=== PATIENT | female | born 1950 | race Caucasian/White ===

== ENCOUNTER 2023-07-21 07:21 | Day surgery (SDC) | payer MEDICARE, SELFPAY ==
[2023-07-16 14:00] VITALS: BMI 21.6
--- NOTE | 2023-07-20 10:40 | HO.ANESPROP2 ---
Documented by User: Gissell Mcneal NP 07/20/23 10:41 HPI - Anesthesia Eval Consult details Narrative: 72yo F for Colonoscopy PMFSH Past Medical History Medical History Presence of pessary Hyperlipidemia HTN (hypertension) Surgical History Surgical History H/O colonoscopy Social History Social History Patient Tobacco Use Status: Never used Tobacco Use of substances other than those prescribed or required for medical reasons: No Are you DNR?: No Advance Directives: No Advance Directives Information Provided: Yes Meds Allergies Allergy/AdvReac Type Severity Reaction Status Date / Time amoxicillin [AMOXICILLIN] Allergy Severe HIVES Verified 07/21/23 07:31 lisinopril Allergy Severe Swelling Verified 07/21/23 07:31 Home Medications Medication Instructions Recorded Confirmed Last Taken Type calcium carbonate 500 mg-vitamin 1 tab PO DAILY 07/16/23 07/21/23 Unknown History D3 10 mcg (400 unit) tablet (Calcium 500 With D) cholecalciferol (vitamin D3) 25 25 mcg PO DAILY 07/16/23 07/21/23 Unknown History mcg (1,000 unit) tablet (Vitamin D3) losartan 50 mg tablet 50 mg PO DAILY 07/16/23 07/21/23 07/20/23 History multivitamin 1 tab PO DAILY 07/16/23 07/21/23 Unknown History rosuvastatin 5 mg tablet 5 mg PO DAILY 07/16/23 07/21/23 Unknown History Exam Height,Weight and Vital Signs: Height 5 ft 4 in Weight 57.153 kg Assessment and Plan Assessment Anesthesia Assessment: Chart Reviewed Documented by User: Lisy Braun MD 07/21/23 08:07 PMFSH Active Problems Active Problems: HTN Hyperlipidemia Pessaery in place.Denies SHIRLEY Past Medical History Medical History Presence of pessary Hyperlipidemia HTN (hypertension) Family History Family history of problems with anesthesia: No Surgical History Surgical History H/O colonoscopy History of Problems with Anesthesia: No Social History Social History Patient Tobacco Use Status: Never used Tobacco Use of substances other than those prescribed or required for medical reasons: No Are you DNR?: No Advance Directives: No Advance Directives Information Provided: Yes Meds Allergies Allergy/AdvReac Type Severity Reaction Status Date / Time amoxicillin [AMOXICILLIN] Allergy Severe HIVES Verified 07/21/23 07:31 lisinopril Allergy Severe Swelling Verified 07/21/23 07:31 Home Medications Medication Instructions Recorded Confirmed Last Taken Type calcium carbonate 500 mg-vitamin 1 tab PO DAILY 07/16/23 07/21/23 Unknown History D3 10 mcg (400 unit) tablet (Calcium 500 With D) cholecalciferol (vitamin D3) 25 25 mcg PO DAILY 07/16/23 07/21/23 Unknown History mcg (1,000 unit) tablet (Vitamin D3) losartan 50 mg tablet 50 mg PO DAILY 07/16/23 07/21/23 07/20/23 History multivitamin 1 tab PO DAILY 07/16/23 07/21/23 Unknown History rosuvastatin 5 mg tablet 5 mg PO DAILY 07/16/23 07/21/23 Unknown History Exam Height,Weight and Vital Signs: Height 5 ft 4 in Weight 57.153 kg Vital Signs Temp Pulse Resp BP Pulse Ox O2 Del Method 07/21/23 07:45 98.2 F 91 16 162/80 H 99 Room Air Airway Mallampati Class: III (Small mouth) TM Dist: >3cm Neck ROM: Full Loose/Missing/Broken Teeth: No (Caps intact. Denies broken, loose, missing teeth) Heart: RRR Lungs: CTAB Assessment and Plan Assessment Anesthesia Assessment: Anesthesia Plan Discussed Final Anesthetic Review Family History of Problems with Anesthesia: No History of Problems with Anesthesia: No NPO: Yes ASA Class: II Final Preanesthetic Review: No Changes in Pt Med Stat, Meds/Allgs Chart Reviewed, Consent Obtained/Reviewed and Anes Risks/Benef Reviewed Patient Risk: Low Procedure Risk: Low Assessment/Block/Sedation in SS: Assess/Block/Sedation-SS Anesthetic Plan Anesthetic Plan: MAC: Disposition: Standard PACU
[2023-07-21 07:32] VITALS: BMI 21.4
[2023-07-21 07:45] VITALS: BP 162/80; PULSE 91; RESP 16; TEMP 36.8; O2SAT 99
[2023-07-21] MEDS: Lactated Ringers 1,000 ML 100 ML IVCONT (08:14)
[2023-07-21 09:43] VITALS: BP 89/39; PULSE 53; RESP 16; TEMP 36.1; O2SAT 100
[2023-07-21 09:58] VITALS: BP 118/61; PULSE 71; RESP 16; TEMP 36.7; O2SAT 100
--- NOTE | 2023-07-21 09:58 | PM.OP ---
Brief Operative Note Date of Service: 07/21/23 Pre-op diagnosis: Screening Post-op diagnosis: other (Diverticulosis) Procedure: Colonoscopy to the cecum and TI Surgeon: Smooth Jaimes MD Anesthesia: MAC Was an Soda Fountain Operator used for this Procedure?: No Estimated blood loss (mL): 0 Pathology: none sent Condition: stable Disposition: PACU
--- NOTE | 2023-07-21 10:15 | OP_ITS ---
DATE OF SERVICE: 07/21/2023 SURGEON: Smooth Jaimes MD INDICATIONS: The patient presents for evaluation of colorectal cancer screening. Full consent has been obtained from her for this, including risks of bleeding and perforation. PREOPERATIVE DIAGNOSIS: Colorectal cancer screening. POSTOPERATIVE DIAGNOSIS: PROCEDURE PERFORMED: Colonoscopy to the cecum and terminal ileum. ESTIMATED BLOOD LOSS: COMPLICATIONS: ANESTHESIA: Monitored anesthesia care. ASSISTANTS: SPECIMENS: POSTOPERATIVE DIAGNOSES: Colorectal cancer screening, diverticulosis, internal hemorrhoids. DESCRIPTION OF PROCEDURE: The patient was placed in the left lateral decubitus position. The digital rectal exam revealed some small external hemorrhoids. The Olympus video pediatric colonoscope was entered into the rectum and advanced easily to the cecum. Once in the cecum, I did identify normal-appearing cecal pouch with appendiceal orifice and a normal-appearing ileocecal valve. The terminal ileum was cannulated and appeared normal. The scope was withdrawn back in the colon. The entire cecum and ileocecal valve appeared normal. The scope was slowly withdrawn assessing all mucosal surfaces carefully. Preparation was excellent. I did not visualize any sign of polyps, colitis, nor angiodysplasia. There was a moderate amount of sigmoid diverticulosis. In the rectum, scope was retroflexed visualizing internal hemorrhoids, but no other pathology. The rectal mucosa appeared normal. The scope was straightened and withdrawn from the patient. She tolerated the procedure well and was returned to the recovery area in stable condition. IMPRESSION: 1. Diverticulosis. 2. Internal hemorrhoids. 3. Small external hemorrhoids. PLAN: Given today's negative exam, a negative family history, and her age, I do not think she would need any further screening colonoscopies. As such, she will see me on a p.r.n. basis. MD STEPHEN Johnson/RADHA / [phone]
== END 2023-07-21 10:38 | disposition home or self-care (01) ==
PROVIDERS: PCP Nurse Practitioner Family; Visit Provider Internal Medicine
PROC: 0DJD8ZZ Inspection of Lower Intestinal Tract, Via Natural or Artificial Opening Endoscopic (ICD-10-PCS; CPT 45378; principal; 2023-07-21 08:30)
DX: Z12.11 Encounter for screening for malignant neoplasm of colon (principal); K57.30 Diverticulosis of large intestine without perforation or abscess without bleeding; K64.8 Other hemorrhoids; K64.4 Residual hemorrhoidal skin tags; I10 Essential (primary) hypertension; E78.5 Hyperlipidemia, unspecified; Z96.0 Presence of urogenital implants; Z79.899 Other long term (current) drug therapy; Z88.1 Allergy status to other antibiotic agents; Z88.8 Allergy status to other drugs, medicaments and biological substances
CPT/HCPCS: G0121; J2704

== ENCOUNTER 2023-12-08 07:19 | Outpatient (REF) | payer MEDICARE, SELFPAY ==
[2023-12-08 10:55] LABS: Alanine Aminotransferase 16 U/L (0-31); Albumin Level 4.3 g/dL (3.5-5.0); Alkaline Phosphatase 81 U/L (39-117); Anion Gap 14 (12-20); Aspartate Amino Transferase 19 U/L (5-31); Bilirubin Total 0.4 mg/dL (0.0-1.0); Blood Urea Nitrogen 18 mg/dL (9-16); Calcium 9.5 mg/dL (8.4-10.2); Carbon Dioxide 27 mmol/L (22-29); Chloride 105 mmol/L (96-108); Cholesterol 192 mg/dL (<200); Estimated Glomerular Filt Rate > 60; Glucose Random 79 mg/dL (60-115); HDL Cholesterol 48 mg/dL (>40); LDL Cholesterol Calculated 114 mg/dL (<100); Sodium 142 mmol/L (135-145); Total Protein 6.8 g/dL (6.5-8.0); Triglycerides 151 mg/dL (<150)
== END 2023-12-08 07:20 | disposition home or self-care (01) ==
LOC: HO.HMGCLDS 07:19
PROVIDERS: PCP Nurse Practitioner Family; Visit Provider Nurse Practitioner Family
DX: E78.00 Pure hypercholesterolemia, unspecified (principal)
CPT/HCPCS: 36415; 80053; 80061

== ENCOUNTER 2024-11-29 13:55 | Outpatient (AMB) | payer MEDICARE, SELFPAY ==
--- OUTSIDE RECORDS SUMMARY | 2024-11-29 13:57 | XMS_ITS | Patient Health Record ---
Author Organization [facility] Gabrielle Caseley Address [address] [place] [address] Care Team Providers Care Dispatcher Service Chief Name Role Phone Dagoberto CASTRO, Isis Primary Care Provider Unavail able Mignon Oconnor Unavailable [phone] Allergies Allergen (clinical drug ingredient) Drug/Non Drug Allergy documented on EMR Reaction Allergy Type Onset Date Status amoxicillin Amoxicillin hives Drug Allergy Act byron amlodipine Amlodipine rapid heart beat Drug Allergy Active lisinopril Lisinopril swelling Drug Allergy Activ e Penicillin hives Drug Allergy Active Reason For Referral No Information Medications Medication SIG (Take, Route, Frequency, Duration) Notes Start Date End Date Status Lisinopril 20 MG 1 tablet Orally Once a day for 30 day(s) Not-Taking Calcium 150 MG as directed Orally Active Simvastatin 20 MG 1 tablet in the even ing Orally Once a day for 30 day(s) Not-Taking Multi Vitamin/Minerals as directed Orally Active Rosuvastatin Calcium 5 MG 1 tablet Orall y Once a day Active Losartan Potassium 50 MG 1 tablet Orally Once a day Active Social History Tobacco use other than smoking: Question Answer Notes Are you an other tobacco user? No Vital Signs Blood pressure diastolic 80 mm Hg 11/13/2024 Height 5 ft 4 in in 11/13/2024 Blood pressure systolic 128 mm Hg 11/13/2024 Weight 120 lbs 11/13/2024 BMI 20.6 kg/m2 11/13/2024 Procedures Procedure Date Ordered Date Performed Result Body Sit e 76942-Rvya Destruction, 1-14 11/13/2024 N/A Encounters Encounter Location Date Provider [facility] [place] [address] [place] [address] 11/13/2024 Mignon Oconnor Pain in right toe(s) M79.674 ; Onychomycosis B35.1 ; Pain in left toe(s) M79.675 ; Plantar wart B07.0 and Left foot pain M79.672 Assessments Encounter Date Diagnosis (ICD Code) Assessment Notes Treatment Notes Treatment Clinical Notes Section Notes 11/13/2024 Pain in right toe(s) (ICD-10 - M79.674) 11/13/2024 Onychomycosis (ICD-10 - B35.1) 11/13/2024 Pain in left toe(s) (ICD-10 - M79.675) 11/13/2024 Plantar wart (ICD-10 - B07.0) 11/13/2024 Left foot pain (ICD-10 - M79.672) Plan Of Treatment Pending Test Test Name Order Date X ray : Foot, right 3V 08/01/2012 19899-Hnna Destruction, 1-14 11/13/2024 60741- Debride <25 sq cm 08/01/2012 68338- Debride <25 sq cm 09/14/2012 Next Appt Details Provider Name:Mignon marin, 02/12/2025 02:45:00 PM, [address] [place], [address], Insurance Providers Payer Name Payer Address Payer Phone Subscriber Number Group Number Insured Name Patient Relationship to Insured Coverage Start Date Coverage End Date Medicare National Govt [facility] [address] [facility] [place] [address] [id number] Lynne Bravo Self - patient is the insured 5 [employer] Blue [employer] [address] [place] [address] [id number] Lynne Bravo Self - patient is the insured Medical (General) History Medical History History ICD Code hyperlipidemia chicken pox measles mumps hypertension CAD (Cholesterol) High Blood Pressure Surgical History Surgery Date(Month/Year) hysterectomy 09/26/24 Colpocleisis cystoscopy
--- OUTSIDE RECORDS SUMMARY | 2024-11-29 13:57 | XMS_ITS ---
Author Organization [facility] Address [address] [place] [id number] Care Team Providers Care Clinical Documentation Specialist Name Role Phone Isis Arenas N.P. Primary Care Provider Smooth Maldonado [phone] REASON FOR VISIT screening Problems Problem Type SNOMED Code ICD Code Onset Dates Problem Status W/U Status Risk Notes Problem Diverticular disease of colon (032405312) Diverticulosis of large intestine without perforation or abscess without bleeding (K57.30) Active confirmed Encounters Encounter Location Date Provider Diagnosis [facility] [address], [place] [id number] 07/21/2023 Smooth Jaimes Encounter for scre ening colonoscopy Z12.11 ; Diverticulosis of large intestine without perforation or abscess without bleeding K57.30 and Other hemorrhoids K64.8 Assessments Encounter Date Diagnosis (ICD Code) Assessment Notes Treatment Notes Treatment Clinical Notes Section Notes 07/21/2023 Encounter for screening colonoscopy (ICD-10 - Z12.11) 07/21/2023 Diverticulosis of large intestine without perforation or abscess without bleeding (ICD-10 - K57.30) 07/21/2023 Other hemorrhoids (ICD-10 - K64.8) Plan Of Treatment No Information Progress Notes * BOB MARIE MDOB:[birth year] (73 yo F)Acc No.[id number]:07/21/2023 COLON WITH MAC Patient:?BOB MARIE Provider:?Smooth Jaimes MD :1950???Age:72 Y???Sex:Female D ate:07/21/2023 Address:[address] [place] [address] , [place], [id number] Pcp:Isis Arenas N.P. Subjective: * Chief Complaints: * ???1. Screening. * Medical History:? Objective: * Vitals:? Assessment: * Assessment: 1.?Encounter for screening c olonoscopy - Z12.11 (Primary)???2.?Diverticulosis of large intestine without perforation or abscess without bleeding - K57.30???3.?Other hemorrhoids - K64.8??? Plan: * Treatment: * Procedure Codes:?G0121 COLOR EC CNCR SCR;COLNSCPY NO HI RSK, 0529F INTRVL 3+YRS PTS CLNSCP DOCD, 0528F RCMND FLW-UP 10 YRS DOCD, Modifiers: 1P * * The named appointment provid er may or may not be the originator of this progress note, and it is not deemed complete until electronically signed by the appointment provider. Sign off status: Pending * Provider:?Smooth Jaimes MD Date:? 024 Generated for Ben meeks/Kody/eTransmitting on:?11/29/2024 01:57 PM EDT
--- OUTSIDE RECORDS SUMMARY | 2024-11-29 13:57 | XMS_ITS | Patient Health Record ---
Author Organization [facility] Address [address] [place] [address] Care Team Providers Care Panel Builder Name Role Phone Isis Arenas N.P. Primary Care Provider Smooth Maldonado [phone] Allergies Allergen (clinical drug ingredient) Drug/Non Drug Allergy documented on EMR Reaction Allergy Type Onset Date Status lisinopril Lisinopril Unknown Drug Allergy Activ e amoxicillin Amoxicillin Unknown Drug Allergy Act byron amlodipine Amlodipine Unknown Drug Allergy Activ e Reason For Referral No Information Medications Medication SIG (Take, Route, Frequency, Duration) Notes Start Date End Date Status Vitamin D (Cholecalciferol) 25 MCG (1000 UT) 1 capsule Orally Once a day for 30 day(s) Active Calcium + D 500-1000-40 MG-UNT-MCG as directed Orally Active Multi Vitamin - 1 tablet Orally Once a day for 30 day(s) Active Rosuvastatin Calcium 5 MG 1 capsule Oral ly Once a day for 30 day(s) Active Losartan Potassium 50 MG 1 tablet Orally Once a day for 30 day(s) Active Immunizations Vaccine Route Administration Date Status Comme nts Influenza Unknown 05/12/2023 Refused Social History Tobacco Use: Social History Observation Description Date Details (start date - stop date) Never Smoker NA - NA Tobacco Use/Smoking Question Answer Notes Patient is a nonsmoker Alcohol Screen Question Answer Notes Did you have a drink containing alcohol in the p ast year? No Points 0 Interpretation Negative Section Notes: Nonsmoker; no sig alcohol Problems Problem Type SNOMED Code ICD Code Onset Dates Problem Status W/U Status Risk Notes Problem [id number] Colon cancer screening (Z12.11) Active confirmed Problem Diverticular disease of colon (843867766) Diverticulosis of large intestine without perforation or abscess without bleeding (K57.30) Active confirmed Problem [id number] Preprocedural examination (Z01.818) Active confirmed Encounters Encounter Location Date Provider Diagnosis [facility] [address] [place] [address] 04/21/2024 Smooth Jaimes Plan Of Treatment Future Test Test Name Order Date COLONOSCOPY 05/12/2023 Insurance Providers Payer Name Payer Address Payer Phone Subscriber Number Group Number Insured Name Patient Relationship to Insured Coverage Start Date Coverage End Date MEDICARE OF [place] [address] [place] [address] [phone] [id number] BOB MARIE Self - patient is the insured [employer] CLAIMS [address] [place] [phone] [id number] BOB MARIE Self - patient is the insured Medical (General) History Medical History History ICD Code HTN Hyperlipidemia Has a pesary Negative colonoscopy in [address] Roger pro Denies [place],DM,CVA,Lung disease,renal dise ase Surgical History Surgery Date(Month/Year)
--- OUTSIDE RECORDS SUMMARY | 2024-11-29 13:57 | XMS_ITS ---
Author Organization [facility] Gabrielle kirstin [place] Address [address] [place] [address] Care Team Providers Care Lbd Teacher Name Role Phone Dagoberto STOCK UNLOADER, Isis Primary Care Provider Unavail able Mignon Oconnor Unavailable [phone] Allergies Allergen (clinical drug ingredient) Drug/Non Drug Allergy documented on EMR Reaction Allergy Type Onset Date Status amoxicillin Amoxicillin hives Drug Allergy Act byron amlodipine Amlodipine rapid heart beat Drug Allergy Active lisinopril Lisinopril swelling Drug Allergy Activ e Penicillin hives Drug Allergy Active REASON FOR VISIT Fungal Nails, Wart(s) Medications Medication SIG (Take, Route, Frequency, Duration) [...] an other tobacco user? No Vital Signs Height 5 ft 4 in in 11/13/2024 Weight 120 lbs 11/13/2024 BMI 20.6 kg/m2 11/13/2024 Blood pressure systolic 128 mm Hg 11/14/19 25 Blood pressure diastolic 80 mm Hg 025 Procedures Procedure Date Ordered Date Performed Result Body Sit e 31391-Nhti Destruction, 1-14 11/13/2024 N/A Encounters Encounter Location Date Provider Diagnosis [facility] [address] [place] [address] 11/13/2024 Mignon Ridleyaker Pain in right toe(s) M79.674 ; Onychomycosis [...] Treatment Pending Test Test Name Order Date 93463-Dlfi Destruction, 1-14 11/13/2024 Next Appt Details Follow Up: 2-3 Months, Reaso n: Provider Name:Mignon Alena marin, 02/12/2025 02:45:00 PM, [address] [place] [address], [phone], Procedure Notes * Category Sub-Category Detail Notes Wart Treatment Procedure Verruca, as desc ribed in exam, were debrided to pin- point bleeding margins with sterile 15 surgical blade, silver nitrate chemocautery applied, recomm. immune-boosting meds such as zinc, recomm. follow up with topical chemosurgical agents, Pt defers any other forms of tx - 37400 Progress Notes * Lynne BRAVO MDOB:[birth year] (73 yo F)Acc No.[id number]:11/13/2024 Progress Notes Patient:?Lynne BRAVO Provider:?Mignon Oconnor DPM :1950???Age:73 Y???Sex:Female D ate:11/13/2024 [facility] [id number] Pcp:Isis Arenas NP Subjective: * Chief Complaints: * ???Fungal NailsWart(s) * HPI: ???Painful Nails:?Nature:?aching, tender, discolored, thick.?Location:?Both feet.?Duration:?several months.?Course:?worse.?Aggravated by:?shoegear causing difficulty standing/walking.?Treatments:?none.?Skin problems:?Pt States PCP Visit: ?DATE?09/06/2024 * ROS:?General/Constitutional:?Nausea?denies.?Vomiting?denies.?Hunger Thirst?denies.?Loss appetite?denies.?Chills?denies.?Fatigue?denies.?Fever?denies.?Night Sweats?denies.?Unexplained weight loss?denies.?Ophthalmologic:?Blurred vision?denies.?Red eye?denies.?HEENTM:?Dentures?denies.?Dizziness?denies.?Glasses/contacts?admits.?Retinopathy?de nies.?Blurred/double vision?denies.?TMJ?denies.?Discharge/drainage?denies.?Implants?admits.?Hard of hearing denies.?Difficulty chewing/swallowing/speaking?denies.?Nose bleeds?denies.?Sore mouth?denies.?Swollen glands?denies.?Respiratory:?On Oxygen?denies.?Pneumonia/pleurisy?denies.?Bronchitis?denies.?Emphysema?denies.?C oughing?denies.?Cough blood?denies.?Shortness of breath?denies.?Wheezing?denies.?Cardiovascular:?Pacemaker?denies.?MVP?denies.?WPW?denies.?CHF?denies.?Heart attack?denies.?Septal defect?denies.?Rapid beat?denies.?Chest pain ?denies.?Atrial Fib.?denies.?Murmur/Palpitations?denies.?Gastrointestinal:?Hemorrhoids?denies.?Stomach/Abdominal pain?denies.?Dark blood stool?denies.?Irritable bowel ?denies.?Constipation?denies.?Diarrhea?denies.?Vomiting?denies.?Hematology:?Swelling?denies.?Bruising?denies.?Bleeding problem?denies.?Genitourinary:?Blood urine?denies.?Frequent/Painfu/urination/bladder control?denies.?Kidney stones?denies.?Infection (UTI)?denies.?Nephropathy?denies.?Musculoskeletal:?Hammertoes?denies.?Bunions?admits.?Scoliosis/kyphosis?denies.?Muscle cramps / walking?denies.?Generalized aches and pains?denies.?Weakness?denies.?Integ.:?Crane?denies.?Scars?denies.?Corns/calluses?denies.?Ingrown nails?admits.?Painful nails?admits.?Rashes?denies.?Neurologic:?Difficulty sleeping?denies.?Bipolar?denies.?Brain disorder?denies.?Balance trouble?denies.?Confusion?denies.?Fainting/blackouts?denies.?Headache?denies.?Tr emors?denies.? * Medical History:? * Surgical History:?hysterecto my 09/26/24Colpocleisis cystoscopy * Hospitalization/Major Diagno stic Procedure:? * Family History:?Mother: dece ased, diagnosed with Other malignant neoplasm of unspecified site, Unspecified cerebral artery occlusion with cerebral infarction.?Father: , heart attack, diagnosed with Unspecified heart disease.? * Social History:?Tobacco Use:?Tobacco Use/Smoking?Are you a: nonsmoker.?Tobacco use other than smoking?Are you an other tobacco user??No ???Drugs/Alcohol:?Drugs?Have you used drugs other than those for medical reasons in the past 12 months??No ?Alcohol Screen?Did you have a drink containing alcohol in the past year?: No, Points: 0, Interpretation: Negative.?Miscellaneous:?Caffeine: yes, frequency:, 1-2 cups per day. ?Children: yes. ?Exercise: no. ?Marital status: . ?Occupation: Retired, Teacher. * Medications:?TakingRosuvasta tin Calcium 5 MG Tablet 1 tablet Orally Once a day Losartan Potassium 50 MG Tablet 1 tablet Orally Once a day Calcium 150 MG Tablet as directed Orally Multi Vitamin/Minerals Tablet as directed Orally Taking Rosuvastatin Calcium 5 MG Tablet 1 tablet Orally Once a day Taking Losartan Potassium 50 MG Tablet 1 tablet Orally Once a day Taking Calcium 150 MG Tablet as directed Orally Taking Multi Vitamin/Minerals Tablet as directed Orally Not-Taking/PRNSimvastatin 20 MG Tablet 1 tablet in the evening Orally Once a day Lisinopril 20 MG Tablet 1 tablet Orally Once a day Not-Taking/PRN Simvastatin 20 MG Tablet 1 tablet in the evening Orally Once a day Not-Taking/PRN Lisinopril 20 MG Tablet 1 tablet Orally Once a day * Allergies:?Amoxicillin: hive sPenicillin: hives - AllergyLisinopril: swelling - AllergyAmlodipine: rapid heart beat - Allergy Objective: * Vitals:?Ht:5 ft 4 in, Wt:120 , BMI:20.6, Shoe size:7, BP:128/80mm Hg, Ht-cm: 162.56 cm, Wt-k.43 kg. * Examination: ???General Examination: ?GENERAL APPEARANCE:?Reveals a pleasant, alert, well-nourished, well- developed, well hydrated individual, who demonstrates proper attention to hygiene/body habitus, and is in no acute distress, Pt serves as own?historian for office visit today.?ORIENTED:?person, place, and time.?Dermatologic: ?SKIN FINDINGS:?Skin exam reveals normal texture, elasticity, and turgor. There are no masses. The interspaces are clear.?VERRUCA:?Reveals a Single , multi-loculated , mosaic-patterned, round, raised, flat-topped, petechial bleeding papule(s), with cauliflower appearance and interruption of skin lines, pain to lateral compression, and size estimated at 4 mm diameter, plantar hallux, LEFT foot.?Nails: ?NAILS are:?Elongated, overgrown, dystrophic, lytic, greater than 3mm thick, discolored and friable with crumbly malodorous subungual debris, with pain on palpation, TA, T1, T2, T3, T4, T7, T8, T9.?Neurological: ?SENSORY:?Neurological exam reveals intact sensorium, pain sensation normal, vibration sensation intact, pinprick sensation is normal in the lower extremities, Pt denies, anesthesia, burning, paresthesia, tingling, B/L.?DEEP TENDON REFLEXES:?Achilles, 2/4, B/L.?Vascular: ?DP PULSES (B):?3/4, B/L.?PT PULSES (B):?3/4, B/L.?CAPILLARY FILL TIME:?immediate, all digits, B/L.?TROPHIC CONDITION-TEXTURE/ELASTICITY/TURGOR/HAIR GROWTH (B):?normal, B/L.?TEMPERTURE GRADIENT (C):?warm to cool, proximal to distal, B/L.?PIGMENTATION:?normal, B/L.?EDEMA (C):?absent, B/L.?Orthopedic: ?MUSCLE STRENGTH:?5/5 all groups in a symmetrical fashion , B/L.? Assessment: * Assessment: 1.?Pain in right toe(s) - M7 9.674???2.?Onychomycosis - B35.1 (Primary)???Specify :Acute problem, Complicated w/ Multiple Tx Options(4)???3.?Pain in left toe(s) - M79.675???4.?Plantar wart - B07.0???5.?Left foot pain - M79.672??? Plan: * Treatment: * Procedures:?Wart Treatment:?Procedure?Verruca, as described in exam, were debrided to pin-point bleeding margins with sterile 15 surgical blade, silver nitrate chemocautery applied, recomm. immune-boosting meds such as zinc, recomm. follow up with topical chemosurgical agents, Pt defers any other forms of tx - 70823.? * Procedure Codes:?95357 Wart Destruction, 1-14, Modifiers: XS * Preventive Medicine:? ??Counseling:?Discussion:?-03: Office or other outpatient visit for the evaluation and management of a new patient, which required a medically appropriate history and/or examination and LOW level of DECISION MAKING for: 1 STABLE ACUTE UNCOMPLICATED PROBLEM, 2 OR MORE MINOR PROBLEMS, OR 1 STABLE CHRONIC PROBLEM, THAT POSE(S) A LOW RISK FOR MORBIDITY/MORTALITY. The visit on the day of the encounter encompassed interpreting the data and educating the patient as to the nature of their condition, treatment options available according to their individual PMH, meds, allergies, and overall health/living conditions, as well as any potential risks or complications that may occur from a failure to adhere to, and participate in, the recommended course of therapy. The discussion included a complete verbal, and/or written explanation of the examination results, any x-rays taken, the proposed diagnosis, and outline of the treatment plan. A schedule for future care needs was also explained. The patient verbalized an understanding of the instructions at this time and agreed to be an active participant in their treatment. If the patient should think of any questions or concerns after the visit, I have encouraged the patient to call the office.?Fungal Nail Counseling:?The patient was counseled on the diagnosis, potential etiologies (including, but not limited to, environmental factors, genetic, immune deficiency), and the multiple treatment options for Onychomycosis. We discussed the risks and benefits of each option from performing no treatment, to ultraviolet light shoe treatment, to laser nail treatment, to applying topical antifungals, to taking oral antifungal medication, to surgical removal of the involved nail(s) with or without performing a matricectomy, or any combination thereof. We discussed the advantages and disadvantages of each of possible treatment and importance for adherence to all the recommended therapies for optimum success. This includes the necessity for weekly emery board self nail home debridements, and control the nail and skin environment as much as possible by only using a fresh, dry pair of shoes/socks each day, as well as keeping the skin as dry as possible through the use of sprays/powders if necessary. The patient was instructed to discard the emery board after use to prevent reinfection of the involved nail(s). We discussed the mycological and visual clinical effectiveness of topical vs oral antifungal treatments as well as each ones potential side effects and/or any patient- specific medication interactions. We discussed the reasons behind the important requirement of regular liver function testing with oral antifungal therapy for safety. Patient questions regarding use, dosage, successful outcomes, blood tests, and possible pharmaceutical interactions were reviewed and the patient verbalized that all answers were clearly understood, Performance of this nail treatment by a nonprofessional would put this patients foot and overall health at risk. Therefore, debridement to affected nail(s), as described in exam, was performed exclusively by the physician of record to reduce/remove overall nail length, girth, thickness, subungual debris, and necrotic tissue, by manual and/or electrical means through the use of a nail nipper and/or dremel-type watch crystal edge grinder, to a more viable healthy nail plate or bed tissue. Silver nitrate used for any petechial bleeding as necessary. Patient would prefer debridement therapy at this time. She was previously seen by a astronaut mission specialist and used Naftin gel which did not help her condition. She does not want to try any oral therapy at this time. We discussed use of tea tree oil, vicks vaporub and vinegar soaks as alternative remedies..? ??Screening/Special Tests:?Fall Risk?Screening:?No falls in the past year ?FALLS: Screening for Future Fall Risk?Have you had any falls with injury in the past year??No * Follow Up:?2-3 Months * Images: * Sign off status: Completed true * Provider:?Mignon Oconnor DPM Date:?0 11/13/2024 Generated for Ben meeks/Kody/Lloyd on:?11/29/2024 01:56 PM EDT History and Physical Notes * HPI (History of Present Illness) Category Sub-Category Detail Notes Category Not es Painful Nails Aggravated by: shoegear causing difficulty standing/walking Course: worse Duration: several months Location: Both feet Nature: aching, tender, disc olored, thick Treatments: none Skin problems Pt States PCP Visit: DATE: 09/06/2024 Examination Category Sub-Category Detail Notes Category Not es Neurological SENSORY: Neurological exa m reveals intact sensorium, pain sensation normal, vibration sensation intact, pinprick sensation is normal in the lower extremities, Pt denies, anesthesia, burning, paresthesia, tingling, B/L DEEP TENDON REFLEXES: Achilles, 2/4, B/L Dermatologic SKIN FINDINGS: Skin exam reveal s normal texture, elasticity, and turgor. There are no masses. The interspaces are clear VERRUCA: Reveals a Single , m ulti-loculated , mosaic-patterned, round, raised, flat-topped, petechial bleeding papule(s), with cauliflower appearance and interruption of skin lines, pain to lateral compression, and size estimated at 4 mm diameter, plantar hallux, LEFT foot Orthopedic MUSCLE STRENGTH: 5/5 all groups in a symm etrical fashion , B/L General Examination GENERAL APPEARANCE: Reveals a pleasant, alert, well- nourished, well-developed, well hydrated individual, who demonstrates proper attention to hygiene/body habitus, and is in no acute distress, Pt serves as own historian for office visit today ORIENTED: person, place, and t russel Vascular DP PULSES (B): 3/4, B/L PT PULSES (B): 3/4, B/L CAPILLARY FILL TIME: immediate, all digi ts, B/L TEMPERTURE GRADIENT (C): warm to cool, p roximal to distal, B/L TROPHIC CONDITION-TEXTURE/ELASTICITY/TURGOR/HAIR GROWTH (B): normal, B/L EDEMA (C): absent, B/L PIGMENTATION: normal, B/L Nails NAILS are: Elongated, overg rown, dystrophic, lytic, greater than 3mm thick, discolored and friable with crumbly malodorous subungual debris, with pain on palpation, TA, T1, T2, T3, T4, T7, T8, T9
--- OUTSIDE RECORDS SUMMARY | 2024-11-29 13:57 | XMS_ITS ---
Author Organization [facility] Address [address] [place] [address] Care Team Providers Care Cisco Administrator Name Role Phone Isis Arenas N.P. Primary Care Provider Unava ilable Smooth Jaimes [phone] REASON FOR VISIT colonoscopy Encounters Encounter Location Date Provider Diagnosis [facility] [address] [place] [address] 04/21/2024 Smooth Jaimes Plan Of Treatment No Information Progress Notes * BOB MARIE MDOB:[birth year] (73 yo F)Acc No.[id number]:04/21/2024 Patient:?BOB MARIE :1950???Age:73 Y???Sex:Female Address:[address] [place] [address] [place], [address] * true * Date:? Generated for Hortensiai jeanna/Kody/eTransmitting on:?11/29/2024 01:57 PM EDT
--- NOTE | 2024-11-29 14:24 | MHC.OFFWIV ---
Intake Vital Signs 11/29/24 14:25 Height 5 ft 4 in Weight 128 lb BMI 22.0 BP 118/72 Blood Pressure Location Lt brachial Position Sitting Pulse 74 Pulse Source Pulse Oximeter Temp 98.6 F Temp Source Oral Pulse Oximetry (%) 98 Oxygen Delivery Method Room Air Intake Visit Reasons: EP-rt knee swollen & pain Patient Tobacco Use Status: Never used Tobacco Allergies amoxicillin [AMOXICILLIN] Allergy (Severe, Verified 11/29/24 14:25) HIVES lisinopril Allergy (Severe, Verified 11/29/24 14:25) Swelling Do you need a note to return to daycare/school/sports/work: No HPI HPI Comments History of Present Illness Details History of Present Illness - The patient is a 73 year old female presenting with right knee pain - The condition commenced two weeks ago with no notable inciting incident, trauma, or history of arthritis. - Previous management with rest, ice, and compression garments, including Tylenol and ibuprofen, did not alleviate the symptoms. - The patient reported progressive worsening of the condition with no associated pain or exacerbating factors identifiable from lifestyle changes or physical activities like repetative or new movements. - Absent are any historical conditions or injuries to the right knee, as well as systemic symptoms such as fever or rash. Physical Exam General: Cooperative, healthy appearing, comfortable, no acute distress and well developed Orientation: Patient oriented x3 Limitations: No limitations Head: Normal to inspection Ears: Hearing grossly normal bilaterally Nose: Normal External nose present Face and sinus: Normal facial exam Eyes: Appearance normal, both eyes and all related structures Neck: Normal visual inspection and Yes full ROM Respiratory: Normal respiratory effort and able to speak in complete sentences. Skin: No rashes or lesions noted Neuro: Patient oriented x3 Extremities: as below FOR[facility]LY [facility], 1928[facility]1983 Medical History Presence of pessary Hyperlipidemia HTN (hypertension) Surgical History H/O colonoscopy Social History Patient Tobacco Use Status: Never used Tobacco Review of Systems Const All systems reviewed & are unremarkable except as noted in HPI and below Physical Exam Vital Signs: Last Vital Signs Temp 98.6 F 11/29/24 14:25 Pulse 74 11/29/24 14:25 BP 118/72 11/29/24 14:25 Pulse Ox 98 11/29/24 14:25 Oxygen Delivery Method Room Air 11/29/24 14:25 BMI result Body Mass Index 22.0 Extrem Left lower extremity: knee Details: swelling (slight - prepatellar and infrapatellar (medial side)), normal ROM and knee ligament exam normal; no tenderness, no abrasions, no lacerations, no ecchymosis, no deformity and no unusual warmth Assessment & Plan Assessment & Plan (1) Right anterior knee pain: Code(s): M25.561 - Pain in right knee Plan: For the swelling of the right leg, an x-ray will be performed to exclude any underlying conditions such as arthritis. Naproxen will be initiated at 440 mg every 12 hours to aid in reducing inflammation and swelling. Continuation of elevation and ice is advised. If conservative therapy proves ineffective, a referral to an charge entry specialist may follow based on x-ray findings, pt will need to ask her PCP for this referral. Results from the x-ray will be communicated promptly to determine further management steps. MALINA bandage applied. Patient was informed and verbally consented to the use of an ambient scribe for clinic note documentation during this visit. Orders: Orders XR knee RT 4V Today M25.561 - Pain in right knee Coding Level of Care Code New Pt Level 4 (41544) Diagnoses Right anterior knee pain M25.561
[2024-11-29 14:25] VITALS: BP 118/72; PULSE 74; TEMP 37; O2SAT 98; BMI 22.0
== END 2024-11-29 14:54 | disposition home or self-care (01) ==
PROVIDERS: PCP Nurse Practitioner Family; Visit Provider Physician Assistant
DX: M25.561 Pain in right knee (principal)

== ENCOUNTER 2024-11-29 13:55 | Outpatient (REF) | payer MEDICARE, SELFPAY ==
--- NOTE | ~2024-11-29 | XR_ITS ---
EXAMINATION: XR KNEE, RIGHT CLINICAL INFORMATION: M25.561 - Pain in right knee COMPARISON: None available. TECHNIQUE: Four views of the right knee. FINDINGS: No fracture, dislocation, or suspicious bone lesion. Normal alignment. Mild medial compartment joint space narrowing. Joint spaces otherwise preserved. There is a small suprapatellar joint effusion. There is no soft tissue abnormality. XR/XR knee RT 4V IMPRESSION: 1. Mild medial compartment joint space narrowing and osteoarthritis. 2. Small suprapatellar joint effusion. Electronically signed by: Donta Waddell MD 11/29/2024 03:23 PM EDT
== END 2024-11-29 13:56 | disposition home or self-care (01) ==
LOC: HO.HMGCX 13:55
PROVIDERS: PCP Nurse Practitioner Family; Visit Provider Physician Assistant
DX: M25.561 Pain in right knee (principal)
CPT/HCPCS: 73564; 99202

== ENCOUNTER → 2024-11-29 14:57 | Outpatient (BNV) | payer MEDICARE, SELFPAY | PROVIDERS: PCP Nurse Practitioner Family; Visit Provider Radiology Diagnostic Radiology | DX: M17.11 Unilateral primary osteoarthritis, right knee (principal) | CPT/HCPCS: 73564 ==

== ENCOUNTER 2025-02-12 13:22 | Outpatient (AMB) | payer MEDICARE, SELFPAY ==
[2025-02-12 13:30] VITALS: BMI 22.0
--- NOTE | 2025-02-12 13:30 | MHC.OFFVIS ---
Vital Signs 02/12/25 13:30 Height 5 ft 4 in Weight 128 lb BMI 22.0 Intake Visit Reasons: Right knee pain and giving way Intake Note: Lynne is a 74 year old female who presents with complaints of progressively worsening right knee pain and giving way. The patient describes her pain as sharp in nature. Most of the pain is along the medial aspect of her knee. She states that her symptoms have gotten worse over the last 6 months in spite of continued non operative treatments. She did twist her knee while recently gardening. She has failed the last 6 weeks of conservative treatment which has included a home exercise program, Tylenol and anti-inflammatory medicines. The patient states that her right knee will give out at times and that I do not trust my knee. Allergies amoxicillin (AMOXICILLIN) Allergy (Severe, Verified 02/12/25 13:34) HIVES lisinopril Allergy (Severe, Verified 02/12/25 13:34) Swelling Medication List - Last Reconciled 02/12/25 by Eric Unger MD calcium carbonate-vitamin D3 500 mg-10 mcg (400 unit) (Calcium 500 With D) 1 tab PO DAILY losartan 50 mg PO DAILY multivitamin 1 tab PO DAILY rosuvastatin 5 mg PO DAILY PFSH Medical History Presence of pessary Hyperlipidemia HTN (hypertension) Surgical History H/O colonoscopy Social History Patient Tobacco Use Status: Never used Tobacco Physical Exam Vital Signs: BMI result Body Mass Index 22.0 Const Other: Well-nourished well-developed very friendly female awake alert and oriented x3 in no acute distress Extrem Other: Bilateral lower extremity examination shows good capillary refill, no skin lesions noted, normal sensation light touch Right knee examination shows a minimal effusion, minimal crepitus with range of motion, tenderness along her medial joint line, positive Rey's test, no instability Results Reviewed Results Reviewed: Standing full weight-bearing x-rays of the patient's right knee show mild diffuse joint space narrowing, no acute bony abnormalities Assessment & Plan Assessment & Plan (1) Tear of medial meniscus of right knee: Code(s): S83.241A - Other tear of medial meniscus, current injury, right knee, initial encounter Category: Medical Plan Ms. Bravo presents with progressively worsening right knee pain and mechanical symptoms most likely due to a medial meniscus tear. Thus, I will send the patient for an MRI of her right knee for further evaluation. I will see her back once the MRI is completed to discuss the findings and treatment options. Feel free to call me at any time should questions regarding her orthopedic management arise. Thank you very much for asking me to see this very friendly patient. I spent 22 minutes in reviewing the patient's records and imaging studies, seeing the patient and documenting in the medical record. Orders: Orders MR knee RT wo con 02/13/25 S83.241A - Other tear of medial meniscus, current injury, right knee, initial encounter Coding Level of Care Code Est Pt Level 3 (18850) Complex EM visit Add On G2211 Diagnoses Tear of medial meniscus of right knee S83.241A
--- OUTSIDE RECORDS SUMMARY | 2025-02-12 14:05 | XMS_ITS | Patient Health Record ---
[facility] [place] Address [address] [place] [address] Care Team Providers Care Parts Counter Sales Person Name Role Phone Dagoberto CASTRO, Isis Primary Care Provider Unavail able Mignon Oconnor Unavailable [phone] Allergies Allergen (clinical drug ingredient) Drug/Non Drug [...] tablet Orall y Once a day Active Social History Tobacco use other than smoking: Question Answer Notes Are you an other tobacco user? No Vital Signs Blood pressure diastolic 80 mm Hg 11/13/2024 Height 5 ft 4 in in 11/13/2024 Blood pressure systolic 128 mm Hg 11/13/2024 Weight 120 lbs 11/13/2024 BMI 20.6 kg/m2 11/13/2024 Procedures Procedure Date Ordered Date Performed Result Body Sit e 15444-[id number] Destruction, 1-14 11/13/2024 N/A Encounters Encounter [facility] Date [facility] [address] 11/13/2024 Mignon Oconnor Pain in right toe(s) M79.674 ; Onychomycosis B35.1 ; Pain in left toe(s) M79.675 ; Plantar wart B07.0 and Left foot pain M79.[address] [facility] [address] 02/09/2025 Mignon Oconnor Assessments Encounter Date Diagnosis (ICD Code) Assessment [...] X ray : Foot, right 3V 08/01/2012 49798-[id number] Destruction, 1-14 11/13/2024 54970- Debride <25 sq cm 08/01/2012 67846- Debride <25 sq cm 09/14/2012 Next Appt Details Provider Name:Mignon marin, 02/19/2025 03:30:00 PM, [address] [place] [address], [address], Insurance Providers Payer Name Payer Address Payer Phone Subscriber Number Group Number Insured Name Patient Relationship to Insured Coverage Start Date Coverage End Date Medicare National Govt Kabbee [facility] [address] [facility] [address] [phone] [id number] Lynne Bravo Self - patient is the insured 5 [employer] Blue [employer] [address] [place] [address] [id number] Lynne Bravo Self - patient is the insured Medical (General) History Medical History History ICD Code hyperlipidemia chicken pox measles mumps hypertension CAD (Cholesterol) High Blood Pressure Surgical History Surgery Date(Month/Year) hysterectomy 09/26/24 Colpocleisis cystoscopy
--- OUTSIDE RECORDS SUMMARY | 2025-02-12 14:05 | XMS_ITS | Clinical Summary ---
Author Organization [facility] Address [address] [facility] ([place], [place]) [address] [place] [address] Phone Care Team Providers Care Pulling Unit Operator Name Role Phone Isis Arenas NP Primary Care Provider [phone]- [phone] Allergies Active Allergy Reactions Criticality Noted Date Comments Amoxicillin Hives 09/18/2023 Lisinopril Throat Tightness Medium 09/18/2023 Medications losartan (COZAAR) 50 MG tablet 09/07/2023 Active rosuvastatin (CRESTOR) 5 MG tablet 2 x a week 07/03/2023 Active multivitamin Liqd Take 5 mL by mouth daily. Active famotidine (PEPCID) 10 MG tablet Take 10 mg by mouth 2 (two) times a day. Active Active Problems No known active problems Social History Tobacco Use Types Packs/Day Years Used Date Smoking Tobacco: Never Assessed Education Answer Date Recorded Are you interested in more education? Not on merle e 09/18/2023 Are you concerned about learning? Not on file 09/18/2023 No 09/18/2023 No 09/18/2023 Digital Access Answer Date Recorded No 09/18/2023 No 09/18/2023 Reliable internet access at home? Not on file 09/18/2023 Device with a working camera? Not on file Comments Unknown Sex and Gender Information Value Date Recorded Sex Assigned at Not on file Legal Sex Female 2:16 PM EST Gender Identity Not on file Sexual Orientation Not on file Last Filed Vital Signs Vital Sign Reading Time Taken Comments Blood Pressure 129/76 09/18/2023 3:05 PM EST Pulse 73 09/18/2023 3:05 PM EST Temperature 37.1 C (98.8 F) 09/18/2023 3:05 PM EST Respiratory Rate 20 09/18/2023 3:05 PM EST Oxygen Saturation 99% 09/18/2023 3:05 PM EST Inhaled Oxygen Concentration - - Weight 57.6 kg (127 lb) 09/18/2023 3:05 PM EST Height 162.6 cm (5' 4 ) 09/18/2023 3:05 PM EST Body Mass Index 21.8 09/18/2023 3:05 PM EST Plan of Treatment Health Maintenance Due Date Last Done Comments Adult Td,Tdap Booster 1950 CREATININE LEVEL 1950 LIPID PANEL 1950 POTASSIUM LEVEL 1950 DEPRESSION SCREENING 1961 SMOKING Hx and SMOKELESS TOBACCO SCREENING 1962 HEPATITIS C SCREENING 12/26/1967 COLOGUARD 1994 COLONOSCOPY 1994 COLORECTAL CANCER SCREENING 1994 FIT TEST 1994 FOBT 1994 SIGMOIDOSCOPY 1994 VIRTUAL COLONOSCOPY 1994 PNEUMOCOCCAL VACCINES (50+ years) (1 of 1 - PCV) 12/26/1999 ZOSTER VACCINES (1 of 2) 12/26/1999 OSTEOPOROSIS SCREENING INITI AL (ONE-TIME) 2014 COVID-19 VACCINE (3 - 2023-2 5 season) 2024 10/18/2020, 09/27/2020 RSV VACCINE (1 - 1-dose 75+ series) 2024 HEPATITIS A VACCINES Aged Out No long er eligible based on patient's age to complete this topic HIB VACCINES Aged Out No longer eligi ble based on patient's age to complete this topic MENINGOCOCCAL VACCINES (ACWY) Aged Out No longer eligible based on patient's age to complete this topic MENINGOCOCCAL VACCINES (B) Aged Out N o longer eligible based on patient's age to complete this topic Medical Devices Not on file Insurance [facility] MEDEX SUPPLEMENT MEDICARE PART A & B BLUE CROSS MEDEX SUPPLEMENT MEDICARE PART A & B HOSTING MEDEX SUPPLEMENT MEDICARE PART A & B HOSTING MEDEX SUPPLEMENT MEDICARE PART A & B BLUE CROSS MEDEX SUPPLEMENT MEDICARE PART A & B BLUE CROSS MEDEX SUPPLEMENT MEDICARE PART A & B Care Teams Pulling Unit Operator Relationship Specialty Start Date End Date Isis Arenas NP [address] [place] [address] PCP - General Nurse Practitioner 09/18/23 Additional Source Comments The information contained in this document represents components of the legal health record. It is not the complete legal health record.[facility]
--- OUTSIDE RECORDS SUMMARY | 2025-02-12 14:05 | XMS_ITS | Patient Health Record ---
Author Organization [facility] Address [address] [place] [address] Care Team Providers Care Electronics Repair Technician Name Role Phone Isis Arenas N.P. Primary Care Provider Smooth Maldonado [phone] Allergies Allergen (clinical drug ingredient) Drug/Non Drug [...] Problem Status W/U Status Risk Notes Problem 773842612 Colon cancer screening (Z12.11) Active confirmed Problem Diverticular disease of colon (229286331) Diverticulosis of large intestine without perforation or abscess without bleeding (K57.30) Active confirmed Problem 184406850490932 Preprocedural examination (Z01.818) Active confirmed Encounters Encounter Location Date Provider Diagnosis [facility] [address] [place] [address] 04/21/2024 Smooth Jaimes Plan Of Treatment Future Test Test Name Order Date COLONOSCOPY 05/12/2023 Insurance Providers Payer Name Payer Address Payer Phone Subscriber Number Group Number Insured Name Patient Relationship to Insured Coverage Start Date Coverage End Date MEDICARE OF [place] [address] [place] [address] [id number] BOB MARIE Self - patient is the insured MEDEX ATTN CLAIMS [address] [place] [address] [id number] BOB MARIE Self - patient is the insured Medical (General) History Medical History History ICD Code HTN Hyperlipidemia Has a pesary Negative colonoscopy [place] [address] Roger pro Denies SC,DM,CVA,Lung disease,renal dise ase Surgical History Surgery Date(Month/Year)
== END 2025-02-12 14:21 | disposition home or self-care (01) ==
LOC: HO.HOS 13:22
PROVIDERS: PCP Nurse Practitioner Family; Visit Provider Orthopaedic Surgery
DX: S83.241A Other tear of medial meniscus, current injury, right knee, initial encounter (principal)
CPT/HCPCS: 99213; G2211

== ENCOUNTER → 2025-02-12 13:22 | Outpatient (BNVA) | payer MEDICARE, SELFPAY | PROVIDERS: PCP Nurse Practitioner Family; Visit Provider Orthopaedic Surgery | DX: S83.241A Other tear of medial meniscus, current injury, right knee, initial encounter (principal); M25.561 Pain in right knee | CPT/HCPCS: 99212 ==

== ENCOUNTER → 2025-02-21 18:40 | Outpatient (BNV) | payer MEDICARE, SELFPAY | PROVIDERS: PCP Nurse Practitioner Family; Visit Provider Radiology Diagnostic Radiology | DX: S83.271A Complex tear of lateral meniscus, current injury, right knee, initial encounter (principal); M25.461 Effusion, right knee | CPT/HCPCS: 73721 ==

== ENCOUNTER 2025-02-21 18:46 | Outpatient (REF) | payer MEDICARE, SELFPAY ==
--- OUTSIDE RECORDS SUMMARY | 2025-02-12 10:45 | XMS_ITS ---
Author Organization [facility] kirstin [place] Address [address] [facility] [place] [address] Care Team Providers Care Business Line Controller Name Role Phone Dagoberto HIGH SCHOOL PHYSICAL EDUCATION TEACHER, Isis Primary Care Provider Unavail able Mignon Oconnor Unavailable [phone] Allergies Allergen (clinical drug ingredient) Drug/Non Drug Allergy documented on EMR Reaction Allergy Type Onset Date Status amoxicillin Amoxicillin hives Drug Allergy Act byron amlodipine Amlodipine rapid heart beat Drug Allergy Active lisinopril Lisinopril swelling Drug Allergy Activ e Penicillin hives Drug Allergy Active Medications Medication SIG (Take, Route, Frequency, Duration) Notes Start Date End Date Status Lisinopril 20 MG 1 tablet Orally Once a day; Duration: 30 day(s) Not-Taking Simvastatin 20 MG 1 tablet in the even ing Orally Once a day; Duration: 30 day(s) Not-Taking Multi Vitamin/Minerals as directed Orally Active Calcium 150 MG as directed Orally Active Losartan Potassium 50 MG 1 tablet Orally Once a day Active Rosuvastatin Calcium 5 MG 1 tablet Orall y Once a day Active Encounters Encounter Location Date Provider Diagnosis [facility] [place] [address] [place] [address] 02/12/2025 Mignon Oconnor Plan Of Treatment Next Appt Details Provider Name:Mignon marin, 05/23/2025 02:00:00 PM, [address] [place], [address], Progress Notes * Lynne BRAVO MDOB:[birth year] (74 yo F)Acc No.[id number]:02/12/2025 Progress Note Patient: Lynne PRINGLE Provider: Anjelica Oconnor DPM :1950 A ge:74 Y S ex:Female Date:02/12/2025 Address:[address] [place], [place] [address] Pcp:Isis Arenas NP Subjective: * Chief Complaints: * * Medical History: H yperlipidemia, Chicken pox, Measles, Mumps, Hypertension, CAD (Cholesterol), High Blood Pressure. * Medications: T aking Rosuvastatin Calcium 5 MG Tablet 1 tablet Orally Once a day , Taking Losartan Potassium 50 MG Tablet 1 tablet Orally Once a day , Taking Calcium 150 MG Tablet as directed Orally , Taking Multi Vitamin/Minerals Tablet as directed Orally , Not-Taking/PRN Simvastatin 20 MG Tablet 1 tablet in the evening Orally Once a day , Not-Taking/PRN Lisinopril 20 MG Tablet 1 tablet Orally Once a day * Allergies: A moxicillin: hives, Penicillin: hives - Allergy, Lisinopril: swelling - Allergy, Amlodipine: rapid heart beat - Allergy. Objective: * Vitals: Assessment: Plan: * Treatment: * Images: * The named appointment provid er may or may not be the originator of this progress note, and it is not deemed complete until electronically signed by the appointment provider. Sign off status: Pending * Provider: Anjelica Oconnor DPM Date: 02/12/2025 Generated for Ben meeks/Kody/Eliseitting on: 02/21/2025 06:49 PM EDT
--- NOTE | ~2025-02-21 | MR_ITS ---
CLINICAL HISTORY: S83.241A - Other tear of medial meniscus, current injury, right knee, in... MR right knee without gadolinium Comparison: CR/SR - XR KNEE RT 4V - 11/29/24 15:09 EDT Findings: Horizontal undersurface tear of the lateral meniscal body and complex degenerative tearing of the posterior horn/root. The medial meniscus is intact. Cruciate ligaments are intact. Collateral ligaments are intact. A couple high-grade articular cartilage fissures overlie the patellar median ridge and medial facet with minimal subjacent subchondral edema. The trochlear articular cartilage is maintained. Nonuniform moderate grade articular cartilage loss within the posterior weight-bearing aspect of the lateral tibial plateau. The lateral femoral condyle articular cartilage is maintained. In combination with tiny marginal osteophytes this is compatible with mild osteoarthritis. The medial compartment articular cartilage is maintained. Small knee joint effusion. No Teran's cyst. Patellar retinacula and iliotibial band are intact. Quadriceps, patellar, popliteus, and flexor tendons are intact. IMPRESSION: 1. Complex tear of the lateral meniscus associated with mild lateral compartment osteoarthritis. 2. Mild patellar chondropathy. 3. Small knee joint effusion. This document has been electronically signed by: Julio Murphy DO on 02/22/2025 10:26:37
--- OUTSIDE RECORDS SUMMARY | 2025-02-21 18:49 | XMS_ITS | Patient Health Record ---
Author Organization [facility] Address [address] [place] [address] Care Team Providers Care Metal Control Coordinator Name Role Phone Isis Arenas N.P. Primary Care Provider Smooth Maldonado [phone] Allergies Allergen (clinical drug ingredient) Drug/Non Drug [...] Problem Status W/U Status Risk Notes Problem 892357896 Colon cancer screening (Z12.11) Active confirmed Problem Diverticular disease of colon (946190682) Diverticulosis of large intestine without perforation or abscess without bleeding (K57.30) Active confirmed Problem 685236646430675 Preprocedural examination (Z01.818) Active confirmed Encounters Encounter Location Date Provider Diagnosis [facility] [address] [place] [address] 04/21/2024 Smooth Jaimes Plan Of Treatment Future Test Test Name Order Date COLONOSCOPY 05/12/2023 Insurance Providers Payer Name Payer Address Payer Phone Subscriber Number Group Number Insured Name Patient Relationship to Insured Coverage Start Date Coverage End Date MEDICARE OF [place] [address] [place] [address] [id number] BOB MARIE Self - patient is the insured MEDEX ATTN CLAIMS [address] [place] [address] [phone] [id number] BOB MARIE Self - patient is the insured Medical (General) History Medical History History ICD Code HTN Hyperlipidemia Has a pesary Negative colonoscopy [place] [address] Roger pro Denies [place],DM,CVA,Lung disease,renal dise ase Surgical History Surgery Date(Month/Year)
== END 2025-02-21 18:47 | disposition home or self-care (01) ==
LOC: HO.MRI 18:46
PROVIDERS: PCP Nurse Practitioner Family; Visit Provider Orthopaedic Surgery
DX: S83.241A Other tear of medial meniscus, current injury, right knee, initial encounter (principal)
CPT/HCPCS: 73721

== ENCOUNTER 2025-02-26 11:02 | Outpatient (AMB) | payer MEDICARE, SELFPAY ==
--- OUTSIDE RECORDS SUMMARY | 2025-02-12 10:45 | XMS_ITS ---
Author Organization [facility] kirstin [place] Address [address] [facility] [place] [address] Care Team Providers Care Linoleum Layer Apprentice Name Role Phone Dagoberto INSIDE SALES ADMINISTRATOR, Isis Primary Care Provider Unavail able Mignon Oconnor Unavailable [phone] Allergies Allergen (clinical drug ingredient) Drug/Non Drug [...] Active Encounters Encounter Location Date Provider Diagnosis [facility] [place] [address] [place] [address] 02/12/2025 Mignon Oconnor Plan Of Treatment Next Appt Details Provider Name:Mignon marin, 05/23/2025 02:00:00 PM, [address] [place], [address], Progress Notes * Lynne BRAVO MDOB:[birth year] (74 yo F)Acc No.[id number]:02/12/2025 Progress Note Patient: Lynne PRINGLE Provider: Anjelica Oconnor DPM :1950 A ge:74 Y S ex:Female Date:02/12/2025 Address:[address] [place], [place] [address] Pcp:Isis Arenas NP Subjective: * Chief Complaints: [...] Date: 02/12/2025 Generated for Ben meeks/Kody/Eliseitting on: 02/26/2025 11:45 AM EDT
--- NOTE | 2025-02-26 11:16 | MHC.OFFVIS ---
Vital Signs 02/26/25 11:19 Height 5 ft 4 in Weight 124 lb BMI 21.3 BP 147/87 H Blood Pressure Location Lt brachial Position Sitting Pulse 74 Intake Visit Reasons: OV-Right knee follow up MRI review Intake Note: Lynne is a 74 year old female who presents with complaints of right knee pain. She describes her knee pain as sharp in nature. She has failed the last 3 months of conservative treatment which has included Tylenol, anti-inflammatory medicines, physical therapy exercises and a home exercise program. The patient wishes to hold off on surgery if at all possible. She has had cortisone injections in the past which gave her no relief. Allergies amoxicillin (AMOXICILLIN) Allergy (Severe, Verified 02/26/25 11:18) HIVES lisinopril Allergy (Severe, Verified 02/26/25 11:18) Swelling Medication List - Last Reconciled 02/26/25 by Eric Unger MD calcium carbonate-vitamin D3 500 mg-10 mcg (400 unit) (Calcium 500 With D) 1 tab PO DAILY losartan 50 mg PO DAILY multivitamin 1 tab PO DAILY rosuvastatin 5 mg PO DAILY PFSH Medical History Presence of pessary Hyperlipidemia HTN (hypertension) Surgical History H/O colonoscopy Social History Patient Tobacco Use Status: Never used Tobacco Physical Exam Vital Signs: Last Vital Signs Pulse 74 02/26/25 11:19 BP 147/87 H 02/26/25 11:19 BMI result Body Mass Index 21.3 Const Other: Well-nourished well-developed very friendly female awake alert and oriented x3 in no acute distress Extrem Other: Bilateral lower extremity examination shows good capillary refill, no skin lesions noted, normal sensation light touch Right knee examination shows a minimal effusion, mild crepitus with range of motion, tenderness along her lateral joint line, positive Rey's test, no instability Results Reviewed Results Reviewed: MRI of the patient's right knee shows mild diffuse degenerative changes as well as a lateral meniscus tear Assessment & Plan Assessment & Plan (1) Osteoarthritis of right knee: Code(s): M17.11 - Unilateral primary osteoarthritis, right knee Category: Medical Plan Ms. Bravo presents with right knee pain due to early osteoarthritis as well as a lateral meniscus tear. I had a lengthy discussion with the patient regarding the treatment options. She wishes to hold off on surgery if at all possible. I agree with this plan. We did discuss the risks and benefits of a viscosupplementation injection. She is considering undergoing the injection later this year. She will contact my office when she chooses to do so. I will see if her insurance company will cover a viscosupplementation injection at that time. Otherwise she will continue with her activity modifications. Feel free to call me at any time should questions regarding her orthopedic management arise. I spent 22 minutes in reviewing the patient's records and imaging studies, seeing the patient and documenting in the medical record. Coding Level of Care Code Est Pt Level 3 (03834) Complex EM visit Add On G2211 Diagnoses Osteoarthritis of right knee M17.11
[2025-02-26 11:19] VITALS: BP 147/87; PULSE 74; BMI 21.3
--- OUTSIDE RECORDS SUMMARY | 2025-02-26 11:45 | XMS_ITS | Clinical Summary ---
Author Organization [facility] Address [address] [facility] [address] [place] [address] Phone Care Team Providers Care Fast Food Crew Member Name Role Phone Isis Arenas NP Primary Care Provider +1- [phone] Allergies Active Allergy Reactions Criticality Noted Date [...] topic Medical Devices Not on file Insurance [facility] MEDEX SUPPLEMENT MEDICARE PART A & B BLUE CROSS MEDEX SUPPLEMENT MEDICARE PART A & B i[employer] MEDEX SUPPLEMENT MEDICARE PART A & B iCon[employer] MEDEX SUPPLEMENT MEDICARE PART A & B BLUE CROSS MEDEX SUPPLEMENT MEDICARE PART A & B BLUE CROSS MEDEX SUPPLEMENT MEDICARE PART A & B Care Teams Fast Food Crew Member Relationship Specialty Start Date End Date Isis Arenas NP [address] [place] [address] PCP - General Nurse Practitioner 09/18/23 Additional Source Comments The information contained in this document represents components of the legal health record. It is not the complete legal health record.[facility]
== END 2025-02-26 11:58 | disposition home or self-care (01) ==
LOC: HO.HOS 11:02
PROVIDERS: PCP Nurse Practitioner Family; Visit Provider Orthopaedic Surgery
DX: M17.11 Unilateral primary osteoarthritis, right knee (principal)
CPT/HCPCS: 99213; G2211

== ENCOUNTER → 2025-02-26 11:02 | Outpatient (BNVA) | payer MEDICARE, SELFPAY | PROVIDERS: PCP Nurse Practitioner Family; Visit Provider Orthopaedic Surgery | DX: M17.11 Unilateral primary osteoarthritis, right knee (principal) | CPT/HCPCS: 99212 ==

== ENCOUNTER 2025-05-09 09:56 | Outpatient (AMB) | payer MEDICARE, SELFPAY ==
--- OUTSIDE RECORDS SUMMARY | 2025-02-12 10:45 | XMS_ITS ---
Author Organization [facility] kirstin [place] Address [address] [facility] [place] [address] Care Team Providers Care Fine Jewelry Sales Associate Name Role Phone Dagoberto HEEL BUFFER, Isis Primary Care Provider Unavail able Mignon Oconnor Unavailable [phone] Allergies Allergen (clinical drug ingredient) Drug/Non Drug [...] Active Encounters Encounter Location Date Provider Diagnosis Formerly [facility] [place] [address] [place] [address] 02/12/2025 Mignon Oconnor Plan Of Treatment Next Appt Details Provider Name:Mignon marin, 05/23/2025 02:00:00 PM, [address] [place], [address], Progress Notes * Lynne BRAVO MDOB:[birth year] (74 yo F)Acc No.[id number]:02/12/2025 Progress Note Patient: Lynne PRINGLE Provider: Anjelica Oconnor DPM :1950 A ge:74 Y S ex:Female Date:02/12/2025 Address:[address] [place], [place] [address] Pcp:Isis Arenas NP Subjective: * Chief Complaints: [...] Pending * Provider: Anjelica Oconnor DPM Date: 0 02/12/2025 Generated for Ben meeks/Kody/Eliseitting on: 11:59 AM EDT
--- NOTE | 2025-05-09 09:57 | MHC.OFFVIS ---
Intake Visit Reasons: Right knee pain Intake Note: Lynne is a 74 year old female who presents with complaints of right knee pain. The patient states that she has been limping because of her pain which is now affecting her hips as well. She has been having difficulty walking for exercise. She was scheduled to have a Durolane injection today. She wishes to hold off on the injection and go to formal physical therapy for now. Allergies amoxicillin (AMOXICILLIN) Allergy (Severe, Verified 02/26/25 11:18) HIVES lisinopril Allergy (Severe, Verified 02/26/25 11:18) Swelling Medication List - Last Reconciled 05/09/25 by Eric Unger MD calcium carbonate-vitamin D3 500 mg-10 mcg (400 unit) (Calcium 500 With D) 1 tab PO DAILY losartan 50 mg PO DAILY multivitamin 1 tab PO DAILY rosuvastatin 5 mg PO DAILY PFSH Medical History Presence of pessary Hyperlipidemia HTN (hypertension) Surgical History H/O colonoscopy Social History Patient Tobacco Use Status: Never used Tobacco Physical Exam Extrem Other: Right knee examination shows a minimal effusion, mild crepitus with range of motion, no instability Assessment & Plan Assessment & Plan (1) Osteoarthritis of right knee: Code(s): M17.11 - Unilateral primary osteoarthritis, right knee Category: Medical (2) Right knee pain: Code(s): M25.561 - Pain in right knee Plan Mrs. Bravo presents with right knee pain due to degenerative joint disease as well as a meniscus tear. I did give the patient a prescription to go to formal physical therapy. We will hold off on the Durolane injection for now. She will follow up with me on an as-needed basis should her symptoms not plateau at an unacceptable level over the next few months. I spent 21 minutes in reviewing the patient's records and imaging studies, seeing the patient and documenting in the medical record. Orders: Orders PT Evaluation and Treatment Today M25.551 - Pain in right hip, M25.552 - Pain in left hip, M25.561 - Pain in right knee, M25.562 - Pain in left knee Coding Level of Care Code Est Pt Level 3 (57931) Complex EM visit Add On G2211 Diagnoses Osteoarthritis of right knee M17.11 Right knee pain M25.561
--- OUTSIDE RECORDS SUMMARY | 2025-05-09 11:59 | XMS_ITS | Patient Health Record ---
Author Organization [facility] Address [address] [place] [address] Care Team Providers Care Inside Sales Representative Name Role Phone Isis Arenas N.P. Primary Care Provider Smooth Maldonado [phone] Allergies Allergen (clinical drug ingredient) Drug/Non Drug [...] (1000 UT) 1 capsule Orally Once a day; Duration: 30 day(s) Active Calcium + D 500-1000-40 MG-UNT-MCG as directed Orally Active Multi Vitamin - 1 tablet Orally Once a day; Duration: 30 day(s) Active Rosuvastatin Calcium 5 MG 1 capsule Oral ly Once a day; Duration: 30 day(s) Active Losartan Potassium 50 MG 1 tablet Orally Once a day; Duration: 30 day(s) Active Immunizations Vaccine Route Administration [...] Problem Status W/U Status Risk Notes Problem Colon cancer screening (258670107) Colon cancer screening (Z12.11) Active confirmed Problem Diverticular disease of colon (276962040) Diverticulosis of large intestine without perforation or abscess without bleeding (K57.30) Active confirmed Problem Preprocedural examination (777608317240621) Preprocedural examination (Z01.818) Active confirmed Plan Of Treatment Future Test Test Name Order Date COLONOSCOPY 05/12/2023 Insurance Providers Payer Name Payer Address Payer Phone Subscriber Number Group Number Insured Name Patient Relationship to Insured Coverage Start Date Coverage End Date MEDICARE OF [place] [address] [place] [address] [phone] [id number] BOB MARIE Self - patient is the insured MEDEX ATTN CLAIMS [address] [place] [address] [id number] TEDDYBOB DAVIES Self - patient is the insured Medical (General) History Medical History History ICD Code HTN Hyperlipidemia Has a pesary Negative colonoscopy [place] [address] Roger pro Denies [place],DM,CVA,Lung disease,renal dise ase Surgical History Surgery Date(Month/Year)
--- OUTSIDE RECORDS SUMMARY | 2025-05-09 11:59 | XMS_ITS | Clinical Summary ---
Author Organization [facility] Address [address] [facility] [address] [place] [address] Phone Care Team Providers Care Wireless Sales Representative Name Role Phone Isis Arenas NP Primary Care Provider [phone] Allergies Active Allergy Reactions Criticality Noted Date [...] 12/26/1999 OSTEOPOROSIS SCREENING INITI AL (ONE-TIME) 2014 RSV VACCINE (1 - 1-dose 75+ series) 2024 INFLUENZA VACCINE (#1) 2025 COVID-19 VACCINE (3 - 2024-2 6 season) 2025 10/18/2020, 09/27/2020 HEPATITIS A VACCINES Aged Out No long [...] topic Medical Devices Not on file Insurance [employer] CROSS MEDEX SUPPLEMENT MEDICARE PART A & B [employer] MEDEX SUPPLEMENT MEDICARE PART A & B Member Subscriber Plan / Payer (Ef fective 2014-Present) Name:Lynne Bravo Member ID:[id number] Relation to Subscriber:Self Name:Shelly Lynne Subscriber ID:[id number] Payer ID:[id number] Group ID:Not on file Type:Medicare Address: [employer] [address] [place] [phone] [employer] MEDEX SUPPLEMENT MEDICARE PART A & B [employer] MEDEX SUPPLEMENT MEDICARE PART A & B BLUE CROSS MEDEX SUPPLEMENT MEDICARE PART A & B BLUE CROSS MEDEX SUPPLEMENT MEDICARE PART A & B Care Teams Wireless Sales Representative Relationship Specialty Start Date End Date Isis Arenas NP [address] [place] [address] PCP - General Nurse Practitioner 09/18/23 Additional Source Comments The information contained in this document represents components of the legal health record. It is not the complete legal health record.[facility]
--- OUTSIDE RECORDS SUMMARY | 2025-05-09 12:00 | XMS_ITS | Patient Health Record ---
Author Organization [facility] Gabirelle kirstin Dimas Address [address] [place] [address] Care Team Providers Care Cdl B Driver Name Role Phone Dagoberto CASTRO, Isis Primary Care Provider Unavail able Mignon Oconnor Unavailable [phone] Allergies Allergen (clinical drug ingredient) Drug/Non Drug Allergy documented on EMR Reaction Allergy Type Onset Date Status amoxicillin Amoxicillin hives Drug Allergy Act byron amlodipine Amlodipine rapid heart beat Drug Allergy Active lisinopril Lisinopril swelling Drug Allergy Activ e Penicillin hives Drug Allergy Active Reason For Referral No Information Medications Medication SIG (Take, Route, Frequency, Duration) Notes Start Date End Date Status Rosuvastatin Calcium 5 MG 1 tablet Orall y Once a day Active Multi Vitamin/Minerals as directed Orally Active Calcium 150 MG as directed Orally Active Losartan Potassium 50 MG 1 tablet Orally Once a day Active Lisinopril 20 MG 1 tablet Orally Once a day; Duration: 30 day(s) Not-Taking Simvastatin 20 MG 1 tablet in the even ing Orally Once a day; Duration: 30 day(s) Not-Taking Immunizations Vaccine Route Administration Date Status Comme nts Influenza Unknown 04/18/2024 Administered Social History Tobacco use other than smoking: Question Answer Notes Are you an other tobacco user? No Problems Problem Type SNOMED Code ICD Code Onset Dates Problem Status W/U Status Risk Notes Problem Plantar wart (27191401) Plantar wart (B07.0) Active confirmed Vital Signs Blood pressure diastolic 80 mm Hg 11/13/2024 Height 5 ft 4 in in 11/13/2024 Blood pressure systolic 128 mm Hg 11/13/2024 Weight 120 lbs 11/13/2024 BMI 20.6 kg/m2 11/13/2024 Procedures Procedure Date Ordered Date Performed Result Body Sit e 81037-Pzwc Destruction, 1-14 11/13/2024 N/A [id number] NAIL, 6 OR MORE 02/19/2025 N/A Encounters Encounter Location Date Provider Diagnosis [address] [address] 11/13/2024 Mignon Oconnor Pain in right toe(s) M79.674 ; Onychomycosis B35.1 ; Pain in left toe(s) M79.675 ; Plantar wart B07.0 and Left foot pain M79.[address] [address] 02/19/2025 Mignon Oconnor Pain in right toe(s) M79.674 ; Onychomycosis B35.1 and Pain in left toe(s) M79.[address] [address] 11/05/2024 Mignon Oconnor [address] [address] 02/09/2025 Mignon Oconnor Assessments Encounter Date Diagnosis (ICD Code) Assessment Notes Treatment Notes Treatment Clinical Notes Section Notes 11/13/2024 Pain in right toe(s) (ICD-10 - M79.674) 11/13/2024 Onychomycosis (ICD-10 - B35.1) 02/19/2025 Pain in right toe(s) (ICD-10 - M79.674) 02/19/2025 Onychomycosis (ICD-10 - B35.1) 11/13/2024 Pain in left toe(s) (ICD-10 - M79.675) 11/13/2024 Plantar wart (ICD-10 - B07.0) 02/19/2025 Pain in left toe(s) (ICD-10 - M79.675) 11/13/2024 Left foot pain (ICD-10 - M79.672) Plan Of Treatment Pending Test Test Name Order Date X ray : Foot, right 3V 08/01/2012 [id number] NAIL, 6 OR MORE 02/19/2025 23041-Asge Destruction, 1-14 11/13/2024 44048- Debride <25 sq cm 08/01/2012 98371- Debride <25 sq cm 09/14/2012 Next Appt Details Provider Name:Mignon marin, 05/23/2025 02:00:00 PM, [address] [place], [address], Insurance Providers Payer Name Payer Address Payer Phone Subscriber Number Group Number Insured Name Patient Relationship to Insured Coverage Start Date Coverage End Date Medicare [facility] [address] [facility] [place] [address] [id number] Lynne Bravo Self - patient is the insured 5 [employer] [address] [place] [address] [phone] [id number] Lynne Bravo Self - patient is the insured Medical (General) History Medical History History ICD Code hyperlipidemia chicken pox measles mumps hypertension CAD (Cholesterol) High Blood Pressure Surgical History Surgery Date(Month/Year) hysterectomy 09/26/24 Colpocleisis cystoscopy
== END 2025-05-09 10:17 | disposition home or self-care (01) ==
LOC: HO.HOS 09:57
PROVIDERS: PCP Nurse Practitioner Family; Visit Provider Orthopaedic Surgery
DX: M17.11 Unilateral primary osteoarthritis, right knee (principal); M25.561 Pain in right knee
CPT/HCPCS: 99213; G2211

== ENCOUNTER → 2025-05-09 09:56 | Outpatient (BNVA) | payer MEDICARE, SELFPAY | PROVIDERS: PCP Nurse Practitioner Family; Visit Provider Orthopaedic Surgery | DX: M17.11 Unilateral primary osteoarthritis, right knee (principal); M25.561 Pain in right knee; M23.206 Derangement of unspecified meniscus due to old tear or injury, right knee | CPT/HCPCS: 99212 ==